=== PATIENT | male | born 1960 | race Caucasian/White ===

== ENCOUNTER 2021-06-07 15:36 | Emergency (ER) | payer OTHER ==
[~2021-06-07] VITALS: Ht 193 cm; Wt 81.7 kg
--- NOTE | ~2021-06-07 | EMS ---
[address] [address] EMS Patient Care Report Name: INDIANA TANG Room #: REG TONY De Jesus#: [id number] Admission: 06/07/21 Attend Phys: Discharge: Date of : 56 Report #: [id number] THIS REPORT FOR: //name// Report Transmitted: 06/07/2021 18:23 EMS Care Summary [place], [place]/[facility] Incident [id number] @ 06/07/2021 14:56 Incident Location [address] [place] [address] Patient INDIANA TANG Male, 60 Years 1960 [place] [address] Patient History Parkinson's Disease,Hepatitis C (Without Hepatic Coma),Atrial Fibrillation,Alcohol Abuse,Back Pain (Chronic), Patient Allergies No known allergies, Patient Medications None Reported, Chief Complaint LEG SPASMS WHEN ATTEMPTING TO STAND Disposition Transported No Lights/[place] Dispatch Reason Falls Transported To [facility] Narrative M528 AND P28 DISPATCHED EMERGENCY ON A FALL ARRIVED TO FIND A 60/M WITH A CHIEF COMPLAINT OF WHAT HE DESCRIBES "SEIZURES [facility] [address] [place] [address] EMS Patient Care Report Name: INDIANA TANG Room #: REG TONY De Jesus#: [id number] Admission: 06/07/21 Attend Phys: Discharge: Date of : 56 Report #: [id number] FROM THE WAIST DOWN" WHEN HE GOES FROM A SEATED TO A STANDING POSITION. PT STATES THAT THIS HAS BEEN GOING ON FOR THE LAST FEW WEEKS SINCE HE HAS BEEN AT [facility]. PT IS LEAVING AMA TO GO TO THE HOSPITAL TO BE TREATED FOR HIS "SIEZURES WHEN I STAND" STATING THAT IT IS NEUROLOGICAL. BLS ASSESSMENT COMPLETED, PT WAS NOTED TO BE SLIGHTLY UNSTEADY ON HIS FEET WHEN MOVED FROM A CHAIR TO THE STRETCHER. NO OTHER PHYSICAL ABNORMALITIES NOTED. VITALS, POSITION OF COMFORT ON THE STRETCHER. TRANSPORTED NONEMERGENCY TO [facility] WITHOUT INCIDENT. PT CARE TRANSFERRED TO ED STAFF. NO EXCEPTIONS NOTED. Initial Vitals @15:17P: 85,R: 18,BP: 123/78,Pain: 8/10,GCS: 15,CO: 4,SpO2: 93,Revised Trauma: 12, @15:09P: 86,R: 18,BP: 114/83,Pain: 8/10,GCS: 15,SpO2: 96,Revised Trauma: 12, Assessments @15:23MENTAL:No Abnormalities,SKIN:No Abnormalities,HEENT:Head/Face: No Abnormalities,Eyes: No Abnormalities,Neck/Airway: No Abnormalities,LUNG SOUNDS:General: No Abnormalities,Left Upper: No Abnormalities,Right Upper: No Abnormalities,Left Lower: No Abnormalities,Right Lower: No Abnormalities,ABDOMEN:General: No Abnormalities,Left Upper: No Abnormalities,Right Upper: No Abnormalities,Left Lower: No Abnormalities,Right Lower: No Abnormalities,PELVIS//GI:No Abnormalities,EXTREMITIES:Left Arm: No Abnormalities,Right Arm: No Abnormalities,Left Leg: No Abnormalities,Right Leg: No Abnormalities,PULSE:NEURO:No Abnormalities, Impression Generalized Weakness Procedures @15:23StretcherResponse: Unchanged@15:23BLS AssessmentResponse: Unchanged Timeline 14:55,Call Received 14:55,Dispatch Notified 14:56,Dispatched 14:56,En Route 15:01,On Scene 15:03,At Patient 15:09,BP: 114/83 M,PULSE: 86,RR: 18 R,SPO2: 96 Ox,ETCO2: ,BG: ,PAIN: 8,GCS: 15, [facility] [address] [place] [address] EMS Patient Care Report Name: KITTYINDIANA SÁNCHEZ Room #: REG [facility].#: [id number] Admission: 06/07/21 Attend Phys: Discharge: Date of : 56 Report #: [id number] 15:17,BP: 123/78 M,PULSE: 85,RR: 18 R,SPO2: 93 Ox,ETCO2: ,BG: ,PAIN: 8,GCS: 15, 15:18,Depart Scene 15:23,Stretcher,Response: Unchanged 15:23,BLS Assessment,Response: Unchanged 15:30,At Destination 15:49,Call Closed Disclaimer v1.1 Copyright 2020 [employer] This EMS Care Summary contains data elements from the applicable legal record (which may be displayed differently). It is designed to provide pertinent information for the following purposes: continuity of care, clinical quality, and state data reporting. The complete legal record is available to ED staff and administrators of the receiving hospital in [facility]'s Patient Tracker. All data is provided "as is."
[2021-06-07] MEDS ORDERED: NORVASC10 MG PO (17:18)
[2021-06-07] MEDS ORDERED: CARBIDOPA-LEVO1 EA10 PO (17:18)
[2021-06-07] MEDS ORDERED: VITAMIN D325 MC5 PO (17:18)
[2021-06-07] MEDS ORDERED: DICLOFENAC SOD100 G1 TOP (17:18)
[2021-06-07] MEDS ORDERED: FERROUS SULFAT325 M2 PO (17:19)
[2021-06-07] MEDS ORDERED: DULOXETINE HCL30 MG PO (17:19)
[2021-06-07] MEDS ORDERED: FOLIC ACID1 MG PO (17:19)
[2021-06-07] MEDS ORDERED: MELATONIN3 M1 PO (17:20)
[2021-06-07] MEDS ORDERED: LORAZEPAM 0.50.5 MG PO (17:20)
[2021-06-07 19:13] LABS: ABSOLUTE NEUTROPHILS 4.5 thou/uL (1.4-8.2); BASOPHILS 1.1 % (0.0-2.0); EOSINOPHILS 2.7 % (0.0-3.0); HEMATOCRIT 33.9 % (42.0-52.0); HEMOGLOBIN 10.9 gm/dL (14.0-18.0); MCH 21.3 pg (26.0-34.0); MCV 66.7 fL (80.0-100.0); MONOCYTES 9.8 % (1.0-8.0); PLATELET COUNT 256 thou/uL (150-400); POLYS 57.4 % (36.0-66.0); RBC 5.09 mil/uL (4.50-6.00); WBC 7.9 thou/uL (4.0-11.0)
[2021-06-07 19:30] LABS: CALCIUM 9.2 mg/dL (8.5-10.1); CREATININE 0.9 mg/dL (0.7-1.3); MAGNESIUM 1.6 mg/dL (1.8-2.4); POTASSIUM 3.8 mmol/L (3.5-5.1)
[2021-06-07 20:45] VITALS: BP 129/90
== END 2021-06-07 20:47 | disposition home or self-care (01) ==
LOC: ER 15:36
PROVIDERS: Emergency Medicine
DX: R29.898 Other symptoms and signs involving the musculoskeletal system (principal); G89.29 Other chronic pain; M54.9 Dorsalgia, unspecified; Z79.899 Other long term (current) drug therapy; Z79.891 Long term (current) use of opiate analgesic; Z91.09 Other allergy status, other than to drugs and biological substances